=== PATIENT | female | born 1960 | race Caucasian/White ===

== ENCOUNTER → 2017-07-04 | Outpatient (CLI) | payer OTHER ==
[~2017-07-04] MED LIST: CITA20TA4 PO; MULTTAB58 PO; THY/30 PO; VITA10004 PO; [UNRECOGNIZED DRUG - OTHER]
[2017-07-04 12:23] LABS: BASO % 0.5 %; BASO ABS # 0.04 K/uL (0-0.2); COMPLETE YES; EOS % 2.7 %; HEMATOCRIT 47.1 % (37-47); IG% 0.7 %; LYMPH % 13.1 %; LYMPH ABS # 0.96 K/uL (1.2-3.4); MEAN CELL VOLUME 93.8 fL (80-100); MEAN CORPUSCULAR HEMOGLOBIN 32.9 pg (25-34); MEAN PLATELET VOLUME 9.3 fL (7.4-10.4); MONO % 10.5 %; NEUT % 72.5 %; PLATELET COUNT 301 K/uL (130-400); RED BLOOD COUNT 5.02 M/uL (4.2-5.4); WHITE BLOOD COUNT 7.32 K/uL (4.8-10.8)
[2017-07-04 12:31] LABS: URINE APPEARANCE CLEAR (CLEAR); URINE BILIRUBIN NEG (NEG); URINE COLOR YELLOW; URINE NITRITE NEG (NEG); URINE PH 5.5 (4.5-7.5); URINE SPECIFIC GRAVITY 1.023 (1.000-1.030); UROBILINOGEN NEG (NEG)
[2017-07-04 12:40] LABS: MANUAL MICROSCOPIC REQUIRED? NO; REVIEW REQ? NO
[2017-07-04 12:56] LABS: ALT/SGPT 67 U/L (12-78); AST/SGOT 34 U/L (15-37); BLOOD UREA NITROGEN 18 mg/dl (7-18); BUN/CREATININE RATIO 16.1 (10-20); CALCIUM 9.5 mg/dl (8.5-10.1); CARBON DIOXIDE 25 mmol/L (21-32); CHLORIDE 103 mmol/L (98-107); CREATININE 1.13 mg/dl (0.60-1.20); GLUCOSE 90 mg/dl (70-99); POTASSIUM 4.1 mmol/L (3.5-5.1); SODIUM 135 mmol/L (136-145)
[2017-07-04 13:07] LABS: ALB/GLOB RATIO 1.1 (0.9-2); ALKALINE PHOSPHATASE 98 U/L (45-117); AMYLASE 94 U/L (25-115)
[2017-07-04 13:20] LABS: LYME DISEASE AB IGG NEG (NEG)
[2017-07-04 13:32] LABS: LYME DISEASE AB IGM POS (NEG)
== END | disposition home or self-care (01) ==
LOC: C.LAB 10:44
DX: R10.9 Unspecified abdominal pain (principal)

== ENCOUNTER → 2017-07-13 | Day surgery (SDC) | payer OTHER ==
[~2017-07-13] VITALS: Ht 160 cm; Wt 83.0 kg
[~2017-07-13] MED LIST changes: +CHOL100010; +CIPR1TAB11 PO; +CYAN10005 IM; +DOXY100C76 PO; +ERGO500037 PO; +FLUD0.1T10 PO; +LEVO150T9 PO; +SODIUM CHLORIDE 0.9% 1000ML 1,000 ML IV SCH; +VALA500T60 PO
[2017-07-13 10:57] VITALS: BP 120/86; PULSE 67; TEMP 36.7; O2SAT 95; Ht 160 cm; Wt 83.0 kg
[2017-07-13 13:22] VITALS: BP 113/73; PULSE 65; TEMP 37
== END | disposition home or self-care (01) ==
LOC: C.MTU 10:50
DX: E86.9 Volume depletion, unspecified (principal); E86.0 Dehydration